=== PATIENT | female | born 1960 | race African-American/Black ===

== ENCOUNTER 2024-09-13 09:38 | Emergency (ER) | payer MEDICARE, MEDICAID ==
[~2024-09-13] VITALS: Ht 165.1 cm; Wt 80.0 kg
[2024-09-13 09:39] VITALS: O2SAT 98
[2024-09-13 10:37] LABS: BASOPHILS % 0.5 % (0.0-2.0); EOSINOPHILS % 0.1 % (0.0-5.0); HEMATOCRIT. 38.9 % (36.0-48.0); HEMOGLOBIN. 12.8 g/dL (12.0-16.0); LYMPHOCYTES % 19.5 % (20.0-50.0); MEAN CORPUSCULAR HEMOGLOBIN 30.9 pg (28.0-32.0); MEAN CORPUSCULAR HGB CONC 32.9 g/dL (31.0-37.0); MEAN CORPUSCULAR VOLUME 94.1 fL (81.0-99.0); MEAN PLATELET VOLUME 10.2 fl (7.4-10.4); MONOCYTES % 3.1 % (2.0-8.0); NEUTROPHILS % 76.8 % (40.0-76.0); PLATELET 213 x1000/uL (130-400); RED BLOOD CELL COUNT 4.14 mill/uL (4.2-5.4); RED CELL DISTRIBUTION WIDTH 14.1 % (11.6-14.6); WHITE BLOOD COUNT 8.2 x1000/uL (4.5-11.0)
[2024-09-13 10:42] LABS: CHLORIDE 102 mEq/L (98-107); POTASSIUM 4.8 mEq/L (3.5-5.1); SODIUM 138 mEq/L (136-145)
[2024-09-13 10:43] LABS: CALCIUM 9.1 mg/dL (8.7-10.4); CARBON DIOXIDE 26 mEq/L (21-32)
[2024-09-13 10:48] LABS: CREATININE 0.9 mg/dL (0.6-1.0); GLUCOSE 146 mg/dL (70-105); UREA NITROGEN BLOOD 15 mg/dL (9-23)
[2024-09-13 10:49] LABS: TROPONIN I HIGH SENSITIVITY 13 ng/L (3.0-34)
[2024-09-13 10:50] LABS: CREATINE KINASE 1115 IU/L (34-145)
[2024-09-13 11:23] VITALS: TEMP 36.7; O2SAT 98
[2024-09-13 11:30] VITALS: BP 157/70; PULSE 63; RESP 16
[2024-09-13] MEDS: MORPHINE SULFATE 4 MG/ML INJ (FOR IV/IM USE) IV STA (11:30)
[2024-09-13] MEDS: SODIUM CHLORIDE 0.9% 1,000 ML IV ONE (11:30)
[2024-09-13] MEDS: ONDANSETRON HCL 4MG/2ML INJ IV STA (11:30)
== END 2024-09-13 11:36 | disposition short-term general hospital (02) ==
LOC: ER 09:56
DX: S36.113A Laceration of liver, unspecified degree, initial encounter (principal); S29.9XXA Unspecified injury of thorax, initial encounter; S09.90XA Unspecified injury of head, initial encounter; K66.1 Hemoperitoneum; J45.909 Unspecified asthma, uncomplicated; V89.2XXA Person injured in unspecified motor-vehicle accident, traffic, initial encounter; Y93.89 Activity, other specified; Y92.89 Other specified places as the place of occurrence of the external cause; Y99.8 Other external cause status
CPT/HCPCS: 99291; 70450; 96374; 71045; 96375; 80048; 82550; 85025; 84484; 36415; 71260; 72125; 74177; 93005; Q9967; J2405; J2270; A4606; J7030